=== PATIENT | female | born 1970 | race Caucasian/White ===

== ENCOUNTER → 2016-07-20 | Outpatient (CLI) | payer OTHER ==
[2013-11-02 22:19] VITALS: BP 160/84
[~2016-07-20] MED LIST: ASPI-482 PO; BUPIVACAINE MPF 0.25% 10 ML VIAL. ONE; OXYC5CAP3 PO; methylPREDNISolone ACETATE 40 MG/ML VIAL. ONE
--- NOTE | 2016-07-21 01:55 | PAIN ---
DATE OF SERVICE: 07/20/2016 PROGRESS NOTE FOR PAIN CLINIC DIAGNOSES: Right lower quadrant abdominal pain status post inguinal herniorrhaphy mesh. HISTORY OF PRESENT ILLNESS: This is a 45-year-old female, who returns for followup status post previous right ilioinguinal nerve blocks most recently seen on 11/05/2015. The patient did very well after the last injection and reports that she is still feeling relief with that this pain is beginning to return now over the past 1 week or so. The patient reports it is increasing in the right groin radiating to the right medial thigh, anterior thigh, worse with standing and walking, better with lying down or sitting. The patient reports it is shooting and sharp becomes unbearable at times with standing and walking, which is required ____. The patient reports her pain is 5-8 on a scale of 10. No new motor or sensory deficits or other complaints. PHYSICAL EXAMINATION: VITAL SIGNS: The patient's blood pressure 131/85, pulse 76, respirations 18, temperature 98.0 degrees Fahrenheit. Height is 5 feet 3 inches, weighs 191 pounds. GENERAL: The patient is awake, alert, oriented, appropriate, very pleasant demeanor. HEENT: Head shows normocephalic, atraumatic. Extraocular movements are intact and symmetrical. Oral cavity, mucous moist and pink. NECK: Shows anterior throat supple without palpable lymphadenopathy noted. Swallow reflex is symmetrical. CHEST: Shows normal on inspection. Breath sounds clear to auscultation bilaterally. HEART: Shows S1 and S2 clear. ABDOMEN: Soft, nontender, nondistended. BACK: The patient's right lower quadrant shows some moderate tenderness with palpation in the area just to the lateral aspect and inferior to the well-healed surgical scar from inguinal herniorrhaphy is without rash or discoloration, no skin changes are noted. LOWER EXTREMITIES: Showed deep tendon reflexes at 2+ in the patellar tendons. Motor exam is strong with dorsiflexion, extension, quadriceps and hamstring flexion and symmetrical with good hip flexors and extenders on the right and left lower extremities without deficits. Options were discussed with the patient and the patient's old chart was reviewed as her current medication regimen updated. Current review of systems updated today as well. We will proceed with a right repeat ilioinguinal nerve block. Risks were again discussed including, but not limited to bleeding, infection, possibility of epidural hematoma, subsequent neurological compromise, dural puncture, headaches, spinal cord and/or nerve damage, side effects of steroid medication and poor results regarding pain control. The patient understands and wishes to proceed. The patient will return to the clinic in approximately 2-4 weeks or as necessary, was counseled as to return appointment, activity level and side effects to be aware of. DIAGNOSIS: Right lower quadrant abdominal pain status post inguinal herniorrhaphy. PROCEDURE: Right ilioinguinal nerve block using local anesthetic under sterile prep and drape 25-gauge needle. MEDICATIONS INJECTED: Depo-Medrol 40 mg plus 5 mL of 0.25% bupivacaine after negative aspiration. CONDITION AT DISCHARGE: Stable. The patient tolerated procedure well, had no complications. SOFYA RUST MD DR: ALEJO/letha JOB#: [id number] / [id number]
== END ==
LOC: PNCL 14:10
PROVIDERS: ATTEND Anesthesiology
DX: R10.31 Right lower quadrant pain (principal)
CPT/HCPCS: 64425; J1030; J3490

== ENCOUNTER → 2016-10-25 | Outpatient (CLI) | payer OTHER ==
[2013-11-02 22:19] VITALS: BP 160/84
[~2016-10-25] MED LIST changes: -BUPIVACAINE MPF 0.25% 10 ML VIAL. ONE; +OXYC5CAP PO; -OXYC5CAP3 PO; -methylPREDNISolone ACETATE 40 MG/ML VIAL. ONE
--- NOTE | 2016-10-25 15:08 | RAD ---
EXAM: DIGITAL SCREEN BILAT W/CAD HISTORY: Routine Screening. COMPARISON: 03/11/2014 Standard mammographic views are obtained of the bilateral breasts. This study was interpreted with the benefit of Computerized Aided Detection (CAD). FINDINGS: The breast parenchyma is primarily fatty replaced. Breast parenchyma level density 1.. There is a possible small focal asymmetry seen within the left outer breast on the cc view and located 7-8 cm posterior to the nipple on the MLO view. No definite worrisome masses identified in the right breast. IMPRESSION: There is a possible focal asymmetry within the left breast that was not visualized on prior. Could be secondary to overlapping glandular tissue but recommend that the patient return for diagnostic mammogram of the left breast and if this finding persists an ultrasound will be needed. BI-RADS CATEGORY: 0 NEED ADD'L IMAGE/PRIOR MAMMO RECOMMENDED FOLLOW-UP: ADD ADDITIONAL IMAGING PQRS compliance statement: Patient information was entered into a reminder system with a target due date for the next mammogram. Mammography is a sensitive method for finding small breast cancers, but it does not detect them all and is not a substitute for careful clinical examination. A negative mammogram does not negate a clinically suspicious finding and should not result in delay in biopsying a clinically suspicious abnormality. "Our facility is accredited by the [employer] Mammography Program."
== END | disposition home or self-care (01) ==
LOC: MAMMO 13:54
PROVIDERS: ATTEND Nurse Practitioner Family
DX: Z12.31 Encounter for screening mammogram for malignant neoplasm of breast (principal)
CPT/HCPCS: G0202; 77067

== ENCOUNTER → 2016-11-02 | Outpatient (CLI) | payer OTHER ==
[2013-11-02 22:19] VITALS: BP 160/84
--- NOTE | 2016-11-02 14:04 | RAD ---
DATE: 11/02/2016 EXAM: BREAST LEFT, DIGITAL DIAGNOSTIC LT HISTORY: Call back from screening mammogram for possible abnormality in the left breast COMPARISON: Bilateral screening mammogram 10/25/2016 The breast parenchyma is also entirely fat density, category A. FINDINGS: CC and MLO 2-D spot compression views of the left breast demonstrated an asymmetry in the lateral left breast at approximately the 3:00 position. Dedicated left breast ultrasound from the 2 to 4:00 position demonstrates normal fibroglandular breast tissue and no suspicious mass or fluid collection. IMPRESSION: In the area of concern in the lateral left breast, there is normal fibroglandular tissue. BI-RADS CATEGORY: 1 NEGATIVE Recommendation: Return to screening mammogram in 12 months PQRS compliance statement: Patient information was entered into a reminder system with a target due date October 2017 for the next mammogram. Mammography is a sensitive method for finding small breast cancers, but it does not detect them all and is not a substitute for careful clinical examination. A negative mammogram does not negate a clinically suspicious finding and should not result in delay in biopsying a clinically suspicious abnormality. "Our facility is accredited by the [employer] Mammography Program."
--- NOTE | 2016-11-02 14:07 | RAD ---
Ultrasound chest 11/02/2016 Clinical indication: Patient's physician felt a lump between the xiphoid process and rib. Comparison: CT chest 03/14/2012 Findings: Multiple grayscale sonographic images in the area of palpable abnormality demonstrates normal-appearing rib with no suspicious soft tissue mass or fluid collection. Impression: In the area palpable abnormality medial anterior chest, right of midline, no suspicious mass or fluid collection and may represent normal costochondral junction.
== END | disposition home or self-care (01) ==
LOC: MAMMO 14:41
PROVIDERS: ATTEND Nurse Practitioner Family
DX: R92.8 Other abnormal and inconclusive findings on diagnostic imaging of breast (principal); D17.1 Benign lipomatous neoplasm of skin and subcutaneous tissue of trunk; N63 Unspecified lump in breast
CPT/HCPCS: 76604; 76641; G0206; 77065

== ENCOUNTER → 2016-12-26 | Outpatient (CLI) | payer OTHER ==
[2013-11-02 22:19] VITALS: BP 160/84
[2016-12-26 07:04] LABS: BASO # 0.1 x10^3/uL (0.0-0.2); BASO % 1 % (0-3); EOS % 2 % (0-3); HEMATOCRIT 43.3 % (36.0-47.0); HEMOGLOBIN 14.6 g/dL (12.0-15.5); LYMPH # 3.1 x10^3/uL (1.0-4.8); LYMPH % 35 % (24-48); MEAN CORPUSCULAR HEMOGLOBIN 32 pg (25-35); MEAN CORPUSCULAR HGB CONC 34 g/dL (31-37); MEAN CORPUSCULAR VOLUME 96 fL (79-100); MONO % 7 % (0-9); NEUT % 55 % (31-73); PLATELET COUNT 224 x10^3/uL (140-400); RED CELL DISTRIBUTION WIDTH 12.7 % (11.5-14.5)
[2016-12-26 07:10] LABS: ALBUMIN 3.7 g/dL (3.4-5.0); ALBUMIN/GLOBULIN RATIO 1.1 (1.0-1.7); C-REACTIVE PROTEIN 1.7 mg/L (0-3.3); CREATININE 0.7 mg/dL (0.6-1.0); GFR 89.3; POTASSIUM 3.8 mmol/L (3.5-5.1); TOTAL BILIRUBIN 0.3 mg/dL (0.2-1.0); TOTAL PROTEIN 7.1 g/dL (6.4-8.2)
== END | disposition home or self-care (01) ==
LOC: LAB 06:26
PROVIDERS: ATTEND Nurse Practitioner Family
DX: E55.9 Vitamin D deficiency, unspecified (principal); M25.50 Pain in unspecified joint; Z79.899 Other long term (current) drug therapy
CPT/HCPCS: 36415; 80053; 82306; 85025; 85651; 86140

== ENCOUNTER → 2017-05-16 | Outpatient (CLI) | payer OTHER ==
[2017-05-16 14:06] LABS: ADD MAN DIFF? NO
[2017-05-16 14:12] LABS: BASO # 0.1 x10^3/uL (0.0-0.2); BASO % 1 % (0-3); EOS # 0.3 x10^3/uL (0.0-0.7); EOS % 3 % (0-3); HEMATOCRIT 41.1 % (36.0-47.0); HEMOGLOBIN 13.7 g/dL (12.0-15.5); LYMPH # 3.8 x10^3/uL (1.0-4.8); LYMPH % 40 % (24-48); MEAN CORPUSCULAR HEMOGLOBIN 31 pg (25-35); MEAN CORPUSCULAR HGB CONC 33 g/dL (31-37); MEAN CORPUSCULAR VOLUME 94 fL (79-100); MONO # 0.5 x10^3/uL (0.0-1.1); MONO % 6 % (0-9); NEUT # 4.9 x10^3uL (1.8-7.7); NEUT % 51 % (31-73); PLATELET COUNT 235 x10^3/uL (140-400); RED BLOOD COUNT 4.39 x10^6/uL (3.50-5.40); RED CELL DISTRIBUTION WIDTH 12.9 % (11.5-14.5); WHITE BLOOD COUNT 9.6 x10^3/uL (4.0-11.0)
[2017-05-16 14:42] LABS: C-REACTIVE PROTEIN 1.5 mg/L (0-3.3)
[2017-05-16 14:54] LABS: FREE T4 0.72 ng/dL (0.76-1.46)
[2017-05-16 14:54] LABS: THYROID STIM HORMONE (TSH) 1.867 uIU/mL (0.358-3.74)
[2017-05-16 15:25] LABS: SEDIMENTATION RATE 14 (0-25)
[2017-05-17 00:15] LABS: RHEUMATOID FACTOR <10.0 IU/mL (0.0-13.9)
[2017-05-18 19:18] LABS: ANA INTERP Negative (.)
== END | disposition home or self-care (01) ==
LOC: LAB 13:47
DX: M25.50 Pain in unspecified joint (principal)
CPT/HCPCS: 36415; 84439; 84443; 85025; 85651; 86038; 86140; 86431

== ENCOUNTER → 2017-10-12 | Outpatient (CLI) | payer OTHER ==
[~2017-10-12] MED LIST changes: -ASPI-482 PO; +BUPIVACAINE MPF 0.25% 10 ML VIAL.; -OXYC5CAP PO; +methylPREDNISolone ACETATE 40 MG/ML VIAL.
== END | disposition home or self-care (01) ==
LOC: PNCL 13:53
DX: R10.31 Right lower quadrant pain (principal); Z98.890 Other specified postprocedural states
CPT/HCPCS: 64425; J1030; J3490

== ENCOUNTER → 2017-10-12 | Outpatient (CLI) | payer OTHER ==
[2017-10-12 14:15] LABS: THYROID STIM HORMONE (TSH) 1.456 uIU/mL (0.358-3.74)
== END | disposition home or self-care (01) ==
LOC: LAB 12:25
DX: R79.9 Abnormal finding of blood chemistry, unspecified (principal)
CPT/HCPCS: 36415; 64425; 84439; 84443

== ENCOUNTER → 2017-10-24 | Outpatient (CLI) | payer OTHER | END | disposition home or self-care (01) | LOC: MAMMO 13:53 | DX: Z12.31 Encounter for screening mammogram for malignant neoplasm of breast (principal) | CPT/HCPCS: 77063; 77067 ==

== ENCOUNTER → 2018-02-07 | Outpatient (CLI) | payer OTHER ==
[2013-11-02 22:19] VITALS: BP 160/84
[~2018-02-07] MED LIST changes: +ASPI-482 PO; -BUPIVACAINE MPF 0.25% 10 ML VIAL.; +OXYC5CAP PO; -methylPREDNISolone ACETATE 40 MG/ML VIAL.
[2018-02-07 08:14] LABS: ALBUMIN 3.7 g/dL (3.4-5.0); CREATININE 0.6 mg/dL (0.6-1.0); GFR 106.3; POTASSIUM 3.9 mmol/L (3.5-5.1); TOTAL BILIRUBIN 0.2 mg/dL (0.2-1.0); TOTAL PROTEIN 7.3 g/dL (6.4-8.2)
[2018-02-07 08:27] LABS: CHOLESTEROL/HDL RATIO 2.8
== END | disposition home or self-care (01) ==
LOC: LAB 06:58
PROVIDERS: ATTEND Nurse Practitioner Gerontology
DX: Z13.220 Encounter for screening for lipoid disorders (principal); F50.81 Binge eating disorder
CPT/HCPCS: 36415; 80053; 80061

== ENCOUNTER → 2018-07-09 | Outpatient (CLI) | payer OTHER ==
[2013-11-02 22:19] VITALS: BP 160/84
[2018-07-09 09:23] LABS: ALBUMIN 3.7 g/dL (3.4-5.0); ALBUMIN/GLOBULIN RATIO 1.1 (1.0-1.7); CREATININE 0.7 mg/dL (0.6-1.0); GFR 88.9; POTASSIUM 3.5 mmol/L (3.5-5.1); TOTAL BILIRUBIN 0.2 mg/dL (0.2-1.0); TOTAL PROTEIN 7.2 g/dL (6.4-8.2)
== END | disposition home or self-care (01) ==
LOC: LAB 06:27
PROVIDERS: ATTEND Nurse Practitioner Gerontology
DX: K76.9 Liver disease, unspecified (principal)
CPT/HCPCS: 36415; 80053

== ENCOUNTER → 2018-10-24 | Outpatient (CLI) | payer OTHER ==
[2013-11-02 22:19] VITALS: BP 160/84
--- NOTE | 2018-10-24 14:27 | RAD ---
DATE: 10/24/2018. EXAM: MAMMO LAURENCE SCREENING BILATERAL HISTORY: Routine screening. COMPARISON: Previous mammogram from 2018 and 2013. This study was interpreted with the benefit of Computerized Aided Detection (CAD). FINDINGS: Breast Density: SCATTERED The breast parenchyma shows scattered fibroglandular densities. Breast parenchyma level B. The skin and nipples are within normal limits. No suspicious calcifications, spiculated mass or area of architectural distortion. Stable left outer breast mass dating back to 2013 and benign given interval stability. IMPRESSION: No mammographic evidence of malignancy. BI-RADS CATEGORY: 2 BENIGN FINDING(S) RECOMMENDED FOLLOW-UP: 12M 12 MONTH FOLLOW-UP PQRS compliance statement: Patient information was entered into a reminder system with a target due date for the next mammogram. Mammography is a sensitive method for finding small breast cancers, but it does not detect them all and is not a substitute for careful clinical examination. A negative mammogram does not negate a clinically suspicious finding and should not result in delay in biopsying a clinically suspicious abnormality. "Our facility is accredited by the [employer] Mammography Program."
== END | disposition home or self-care (01) ==
LOC: MAMMO 12:16
PROVIDERS: ATTEND Nurse Practitioner Gerontology
DX: Z12.31 Encounter for screening mammogram for malignant neoplasm of breast (principal); N63.20 Unspecified lump in the left breast, unspecified quadrant
CPT/HCPCS: 77063; 77067

== ENCOUNTER → 2018-11-15 | Outpatient (CLI) | payer OTHER ==
[2013-11-02 22:19] VITALS: BP 160/84
[2018-11-15 07:28] LABS: ALBUMIN 3.9 g/dL (3.4-5.0); ALBUMIN/GLOBULIN RATIO 1.1 (1.0-1.7); CALCIUM 8.9 mg/dL (8.5-10.1); CREATININE 0.7 mg/dL (0.6-1.0); GFR 88.9; POTASSIUM 3.7 mmol/L (3.5-5.1); TOTAL BILIRUBIN 0.3 mg/dL (0.2-1.0); TOTAL PROTEIN 7.4 g/dL (6.4-8.2)
== END | disposition home or self-care (01) ==
LOC: LAB 06:25
PROVIDERS: ATTEND Nurse Practitioner Gerontology
DX: Z51.81 Encounter for therapeutic drug level monitoring (principal); Z79.899 Other long term (current) drug therapy
CPT/HCPCS: 36415; 80053

== ENCOUNTER → 2018-11-16 | Outpatient (CLI) | payer OTHER ==
[2013-11-02 22:19] VITALS: BP 160/84
[~2018-11-16] MED LIST changes: +BUPIVACAINE MPF 0.25% 10 ML VIAL. ONE; +methylPREDNISolone ACETATE 40 MG/ML VIAL. ONE
--- NOTE | 2018-11-16 10:29 | PAIN ---
DATE OF SERVICE: 11/16/2018 PROGRESS NOTE FOR PAIN CLINIC DIAGNOSIS: Right lower quadrant abdominal pain, status post herniorrhaphy with mesh. HISTORY OF PRESENT ILLNESS: The patient is a 47-year-old female who returns for followup status post right ilioinguinal nerve blocks, most recently 10/2017. The patient did very well, reports about 80% improvement until last Monday. She was involved in moving some heavy items at work and aggravated the pain in the right groin radiating to the right medial thigh. The patient reports it is aching, sharp, dull, shooting, stabbing, now radiating, becoming more severe with weightbearing, walking, standing, changing positions, especially standing from a seated position. The patient reports it is better at night, does not awaken her from sleep. This is 10 on a scale of 10 at its worst, 10 on average over the last week and a 5 at its least and is a 10 today. The patient reports no new motor or sensory deficits, no new bowel or bladder incontinence or other complaints. PHYSICAL EXAMINATION: VITAL SIGNS: The patient's blood pressure 159/100, pulse 96, respirations 18, temperature 97.8 degrees Fahrenheit, height is 5 feet 2 inches, weight is 179 pounds. GENERAL: The patient is awake, alert, oriented, appropriate, very pleasant demeanor. HEENT: Shows normocephalic, atraumatic. Extraocular movements are intact and symmetrical. Oral cavity: Mucous membranes moist and pink. Dentition is intact. NECK: Shows anterior throat supple without palpable lymphadenopathy noted. Swallow reflex symmetrical. CHEST: Shows normal on inspection. Breath sounds clear to auscultation bilaterally. HEART: Shows S1, S2 clear. No murmurs auscultated. ABDOMEN: Soft, nontender, nondistended. No palpable organomegaly is noted. No rebound or guarding demonstrated. BACK: Shows spine grossly in the midline. Normal appearing thoracic kyphosis and lumbar lordotic curvature. EXTREMITIES: The patient's lower extremities show deep tendon reflexes 2+ in the patellar, 1+ tendo-calcaneus tendons. Motor exam is strong with 5/5 dorsiflexion, extension and equal. The patient's right groin shows some scarring in the right inguinal region with significant tenderness just inferior and medial to the anterior-superior iliac spine and over the area of scar more medially with some minor radiation into the medial groin, medial thigh with palpation. Left side is nontender. Options were discussed with the patient. The patient's old chart was reviewed as her current medication regimen updated. Current review of systems updated today as well. We will proceed with a right ilioinguinal nerve block today. Risks were again discussed including, but not limited to bleeding, infection, possibility of intravascular injection sequelae, spread of local anesthetic and numbness, side effects of steroid medication and poor results regarding pain control. The patient understands and wished to proceed. The patient will return to clinic in approximately 2 weeks for followup. She was counseled on return appointment, activity level and side effects to be aware of. DIAGNOSIS: Right lower quadrant abdominal pain, status post herniorrhaphy with mesh. PROCEDURE: Right ilioinguinal nerve block under sterile prep and drape using a 0.25% bupivacaine total of 5 mL after negative aspiration and 40 mg total Depo-Medrol. CONDITION AT DISCHARGE: Stable. The patient tolerated the procedure well, had no complications. SOFYA RUST MD DR: ALEJO/letha JOB#: [id number] / [id number]
== END ==
LOC: PNCL 07:33
PROVIDERS: ATTEND Anesthesiology
DX: R10.31 Right lower quadrant pain (principal); Z98.890 Other specified postprocedural states
CPT/HCPCS: 64425; J1030; J3490

== ENCOUNTER → 2019-08-13 | Outpatient (CLI) | payer OTHER ==
[2013-11-02 22:19] VITALS: BP 160/84
[~2019-08-13] MED LIST changes: +ALPR0.5T PO; -BUPIVACAINE MPF 0.25% 10 ML VIAL. ONE; -methylPREDNISolone ACETATE 40 MG/ML VIAL. ONE
[2019-08-13 12:01] LABS: BASO % 1 % (0-3); EOS # 0.2 x10^3/uL (0.0-0.7); EOS % 2 % (0-3); HEMATOCRIT 41.3 % (36.0-47.0); HEMOGLOBIN 14.2 g/dL (12.0-15.5); LYMPH # 2.8 x10^3/uL (1.0-4.8); LYMPH % 35 % (24-48); MEAN CORPUSCULAR HEMOGLOBIN 33 pg (25-35); MEAN CORPUSCULAR HGB CONC 34 g/dL (31-37); MEAN CORPUSCULAR VOLUME 95 fL (79-100); MONO # 0.4 x10^3/uL (0.0-1.1); MONO % 5 % (0-9); NEUT # 4.5 x10^3/uL (1.8-7.7); NEUT % 57 % (31-73); PLATELET COUNT 241 x10^3/uL (140-400); RED BLOOD COUNT 4.36 x10^6/uL (3.50-5.40)
[2019-08-13 12:22] LABS: ALBUMIN 3.8 g/dL (3.4-5.0); ALBUMIN/GLOBULIN RATIO 1.2 (1.0-1.7); C-REACTIVE PROTEIN 2.5 mg/L (0-3.3); CALCIUM 8.7 mg/dL (8.5-10.1); CREATININE 0.7 mg/dL (0.6-1.0); GFR 88.6; POTASSIUM 3.7 mmol/L (3.5-5.1); TOTAL BILIRUBIN 0.2 mg/dL (0.2-1.0)
[2019-08-13 20:08] LABS: RHEUMATOID FACTOR 10.4 IU/mL (0.0-13.9)
[2019-08-14 18:09] LABS: ANA INTERP Negative (.)
== END | disposition home or self-care (01) ==
LOC: LAB 11:13
PROVIDERS: ATTEND Nurse Practitioner Gerontology
DX: M79.642 Pain in left hand (principal)
CPT/HCPCS: 36415; 80053; 85025; 85651; 86038; 86140; 86431

== ENCOUNTER → 2019-08-15 | Outpatient (CLI) | payer OTHER ==
[2013-11-02 22:19] VITALS: BP 160/84
[~2019-08-15] MED LIST changes: +BUPIVACAINE MPF 0.25% 10 ML VIAL. ONE; +methylPREDNISolone ACETATE 40 MG/ML VIAL. ONE; +methylPREDNISolone ACETATE 80 MG/ML VIAL. ONE
--- NOTE | 2019-08-15 13:25 | PAIN ---
DATE OF SERVICE: 08/15/2019 PROGRESS NOTE FOR PAIN CLINIC DIAGNOSIS: Right lower quadrant abdominal pain, status post herniorrhaphy with mesh. HISTORY OF PRESENT ILLNESS: The patient is a 48-year-old female who returns for followup status post right ilioinguinal nerve block, most recently on 11/16/2018. The patient did very well with about 80% improvement eventually, but initially about 100% improvement. The patient reports it is beginning to return now over the past 6 weeks or so in the right groin and some into the anterior medial thigh, also feels some pain in the posterior hip, but mainly in the right groin and thigh. The patient reports it is aching, sharp, shooting, stabbing, severe, radiating at times into the medial thigh and lower abdomen. It can be severe and unbearable, worse with activity, walking, standing, especially standing for prolonged periods, changing positions, standing from a seated position. Rates it as a 9 on a scale of 10 at its worst over the past week, 8 on average and 8 at its least and is an 8 today. The patient reports no new motor or sensory deficits, no new bowel or bladder incontinence or other complaints. PHYSICAL EXAMINATION: VITAL SIGNS: The patient's blood pressure 138/81, pulse 94, respirations 18, temperature 98.1 degrees Fahrenheit, height is 5 feet 2 inches, weighs 180 pounds. GENERAL: The patient is awake, alert, oriented, appropriate, very pleasant demeanor. HEENT: Exam shows normocephalic, atraumatic. Extraocular movements are intact and symmetrical. Oral cavity shows mucous membranes moist and pink. Dentition is intact. NECK: Shows anterior throat supple without palpable lymphadenopathy noted. Swallow reflex symmetrical. CHEST: Shows normal on inspection. Breath sounds are clear bilaterally. HEART: Shows S1, S2 clear. No murmurs auscultated. ABDOMEN: Soft, nontender, nondistended. No palpable organomegaly is noted. There is no rebound or guarding demonstrated. BACK: Shows spine grossly in the midline. Normal appearing thoracic kyphosis, some minor flattening of lumbar lordotic curvature. The patient's right inguinal region shows previously well-healed surgical scarring. There is some moderate tenderness over the anterior superior iliac spine with palpation and also slightly medial and inferior to this without specific radiation. The patient shows no trigger points, no masses. No organomegaly is noted. EXTREMITIES: The patient's lower extremities show deep tendon reflexes 2+ in the patellar, 1+ tendo-calcaneus tendons. Motor exam is strong with 5/5 dorsiflexion, extension and equal. Peripheral pulses are 1+ posterior tibia. No peripheral edema is noted. Options were discussed with the patient. The patient's old chart was reviewed as her current medication regimen updated. Current review of systems updated today as well. We will proceed with a right ilioinguinal nerve block today with risks discussed including, but not limited to bleeding, infection, possibility of extravasation of local anesthetic and numbness, side effects of steroid medication as well as poor results regarding pain control. The patient understands and wished to proceed. The patient will return to clinic in approximately 2 weeks for followup. She was counseled on return appointment, activity level and side effects to be aware of. DIAGNOSIS: Right lower quadrant abdominal pain, status post herniorrhaphy with mesh. PROCEDURE: Right ilioinguinal nerve block under sterile prep and drape using local anesthetic. MEDICATION INJECTED: A total of 5 mL of 0.25% bupivacaine and 80 mg Depo-Medrol after negative aspiration at the injection site. CONDITION AT DISCHARGE: Stable. The patient tolerated the procedure well, had no complications. SOFYA RUST MD DR: ALEJO/letha JOB#: [id number] / [id number]
== END | disposition home or self-care (01) ==
LOC: PNCL 12:31
PROVIDERS: ATTEND Anesthesiology
DX: R10.31 Right lower quadrant pain (principal); Z98.890 Other specified postprocedural states
CPT/HCPCS: 64425; J1040; J3490; J1030

== ENCOUNTER → 2020-02-10 | Outpatient (CLI) | payer OTHER ==
[2013-11-02 22:19] VITALS: BP 160/84
--- NOTE | 2020-02-10 15:19 | PDOC ---
Progress Note - Pain Clinic Date of Service: DOS: DATE: 02/10/20 TIME: 15:14 Diagnosis: Dx: Right lower quadrant abdominal pain status post herniorrhaphy with mesh History or Present Illness: HPI: 49-year-old female returns follow-up status post right ilioinguinal nerve block last seen August 15, 2019. Patient reports he did very well with near 100% improvement until about 2 weeks ago patient reports pain began to return in the right inguinal region also radiated anterior and medial thigh on the right side worse with position changes sitting standing walking better with laying down however does not generally awaken her from sleep at night. Patient ports the pain is a 10 on scale 10 is worse over the past week 8 on average 7 its least as a 7 today patient works aching sharp shooting burning in sensation as well in the right ilioinguinal distribution. Patient reports no new motor or sensory deficits no new bowel or bladder incontinence or other complaints. Physical Exam: VS: Blood pressure is 134/84 pulse 73 respirations are 18 temperature 90.5 F height 5 feet 2 inches weight is 193 pounds PE: PHYSICAL EXAMINATION: GENERAL: The patient is awake, alert, oriented, appropriate, very pleasant demeanor HEENT: Shows normocephalic, atraumatic. Extraocular movements are intact and symmetrical. Oral cavity: Mucous membranes moist and pink. NECK: Shows anterior throat supple without palpable lymphadenopathy noted. Swallow reflex symmetrical. CHEST: Shows normal on inspection. Breath sounds are clear bilaterally, no rales rhonchi wheezes. HEART: Shows S1, S2 clear. No murmurs auscultated. ABDOMEN: Soft, nontender, nondistended, obese. No palpable organomegaly is noted. No rebound or guarding demonstrated. Patient's right lower quadrant shows some significant pain as well as well-healed surgical scar in the ilioinguinal region. With palpation shows some moderate significant pain in the medial inferior aspect inferior to the anterior superior iliac spine, but without significant radiation. BACK: Shows spine grossly in the midline. Normal-appearing cervical lordotic curvature. There is slightly increased thoracic kyphosis, some minor flattening of the lumbar lordotic curvature. Lumbar paraspinous muscles show symmetrical on inspection, on palpation shows some moderate tenderness diffusely throughout the upper, middle and lower distribution of the paraspinous muscles without specific trigger points, without radiation of pain. EXTREMITIES: Lower extremities show deep tendon reflexes 2+ in the patellar and tendo calcaneus tendons. Motor exam is 5 on a scale of 5 with right dorsiflexion, extension, quadriceps and hamstring flexion and 5/5 on the left. Peripheral pulses are [] posterior tibial. No peripheral edema is noted bilaterally. Lower extremities are warm and dry to touch, equal in color and appearance. SKIN: Shows warm and dry, good turgor. No edema. No sores, rashes or bruising throughout. Procedure: Procedure: Options were discussed with the patient. Patient's old chart was reviewed as her current medication regimen updated current review of systems updated today as well. We will proceed with right ilioinguinal nerve block. Risks were discussed including but not limited to bleeding infection possibility of intravascular injection sequelae spread local anesthetic numbness side effects of steroid medication and portal scarring pain control. Patient understands wished to proceed, patient will return to the clinic in approximately 4 weeks for follow-up was counseled as to return appointment activity level and side effects to be aware of. Medication Injected: Med Injected: Sterile prep and drape patient's right ilioinguinal region was notified and region 2 cm medial and 2 cm inferior to the anterior superior iliac spine was then anesthetized with 1% lidocaine this time 25-gauge needle was used to inject into the ilioinguinal nerve in a field block fashion using 5 cc of 0.25% bupivacaine and total of 80 mg Depo-Medrol after negative aspiration. Patient tolerated the procedure well and had no complications. Condition at Discharge: Condition at Discharge: Condition at discharge is stable, patient tolerated procedure well and had no complications. SOFYA RUST MD Feb 10, 2020 15:19
== END | disposition home or self-care (01) ==
LOC: PNCL 14:30
PROVIDERS: ATTEND Anesthesiology
DX: R10.31 Right lower quadrant pain (principal); Z48.815 Encounter for surgical aftercare following surgery on the digestive system; Z87.891 Personal history of nicotine dependence; Z79.82 Long term (current) use of aspirin; Z79.899 Other long term (current) drug therapy; Z98.890 Other specified postprocedural states; Z72.89 Other problems related to lifestyle
CPT/HCPCS: 64425; J1030; J1040; J3490

== ENCOUNTER → 2020-07-03 | Outpatient (CLI) | payer OTHER ==
[2013-11-02 22:19] VITALS: BP 160/84
[~2020-07-03] MED LIST changes: -BUPIVACAINE MPF 0.25% 10 ML VIAL. ONE; -methylPREDNISolone ACETATE 40 MG/ML VIAL. ONE; -methylPREDNISolone ACETATE 80 MG/ML VIAL. ONE
--- NOTE | 2020-07-03 17:14 | RAD ---
XR SHOULDER 2+ VIEWS DATE: 07/03/2020 12:31 PM INDICATION: Reason: POLYARTHRITIS. / Spl. Instructions: / History: COMPARISON: None. FINDINGS: Bones: There is no evidence of acute fracture or dislocation. Joints: Mild degenerative changes of the acromioclavicular joint. Glenohumeral joint is congruent. T he acromiohumeral distance is not narrowed. Miscellaneous: No abnormal soft tissue calcifications in the shoulder. Calcified pulmonary granuloma. IMPRESSION: Mild AC joint osteoarthritis. Electronically signed by: Alejandro Bob MD (07/03/2020 5:11 PM) [id number]
--- NOTE | 2020-07-03 17:14 | RAD ---
XR KNEE 3 VIEWS DATE: 07/03/2020 12:31 PM INDICATION: Reason: POLYARTHRITIS. / Spl. Instructions: / History: COMPARISON: None. FINDINGS: Bones: There is no evidence of acute fracture or dislocation. Joints: Mild medial compartment joint space narrowing. There is no joint effusion. Miscellaneous: None. IMPRESSION: Mild degenerative narrowing of the medial compartment of the knee. Electronically signed by: Alejandro Bob MD (07/03/2020 5:12 PM) [id number]
--- NOTE | 2020-07-03 17:16 | RAD ---
XR HIP (WITH OR WITHOUT PELVIS) 1 VIEW DATE: 07/03/2020 12:31 PM INDICATION: Reason: BILAT HIP PAIN / Spl. Instructions: / History: COMPARISON: None. FINDINGS: Bones: There is no evidence of acute fracture or dislocation. Joints: Mild joint space narrowing of the hips. Moderate degenerative changes of the symphysis pubis. And SI joints are maintained. Miscellaneous: Pelvic phleboliths. IMPRESSION: Mild degenerative changes of the hips. Moderate degenerative changes of the symphysis pubis. Electronically signed by: Alejandro Bob MD (07/03/2020 5:13 PM) [id number]
== END ==
LOC: RAD 08:20
PROVIDERS: ATTEND Family Medicine
DX: M16.0 Bilateral primary osteoarthritis of hip (principal); M17.0 Bilateral primary osteoarthritis of knee; M19.012 Primary osteoarthritis, left shoulder; M19.011 Primary osteoarthritis, right shoulder
CPT/HCPCS: 73521; 73030-50; 73562-50

== ENCOUNTER → 2020-10-15 | Outpatient (CLI) | payer OTHER ==
[2013-11-02 22:19] VITALS: BP 160/84
[~2020-10-15] MED LIST changes: +CONTRAST GIVEN. MC PRN; +IOHEXOL 300 MG/ML 100ML VIAL. IV ONE
[2020-10-15 08:31] LABS: BASO % 1 % (0-3); EOS # 0.3 x10^3/uL (0.0-0.7); EOS % 3 % (0-3); HEMATOCRIT 43.2 % (36.0-47.0); HEMOGLOBIN 14.6 g/dL (12.0-15.5); LYMPH # 3.4 x10^3/uL (1.0-4.8); LYMPH % 39 % (24-48); MEAN CORPUSCULAR HEMOGLOBIN 32 pg (25-35); MEAN CORPUSCULAR HGB CONC 34 g/dL (31-37); MEAN CORPUSCULAR VOLUME 94 fL (79-100); MONO # 0.7 x10^3/uL (0.0-1.1); MONO % 7 % (0-9); NEUT # 4.4 x10^3/uL (1.8-7.7); NEUT % 50 % (31-73); PLATELET COUNT 225 x10^3/uL (140-400); RED BLOOD COUNT 4.62 x10^6/uL (3.50-5.40); RED CELL DISTRIBUTION WIDTH 13.5 % (11.5-14.5); WHITE BLOOD COUNT 8.8 x10^3/uL (4.0-11.0)
[2020-10-15 08:55] LABS: ALBUMIN/GLOBULIN RATIO 1.4 (1.0-1.7); CALCIUM 9.1 mg/dL (8.5-10.1); CREATININE 0.6 mg/dL (0.6-1.0); GFR 105.4; POTASSIUM 4.2 mmol/L (3.5-5.1); TOTAL BILIRUBIN 0.2 mg/dL (0.2-1.0); TOTAL PROTEIN 6.8 g/dL (6.4-8.2)
--- NOTE | 2020-10-15 10:53 | RAD ---
PQRS Compliance Statement: One or more of the following individualized dose reduction techniques were utilized for this examinat ion: 1. Automated exposure control 2. Adjustment of the mA and/or kV according to patient size 3. Use of iterative reconstruction technique CT NECK SOFT TISSUE WITH IV CONTRAST 10/15/2020 8:23 AM Indication: Jaw pain and swelling along the left side COMPARISON: None available. TECHNIQUE: Multiple axial CT images of the chest were obtained after the intravenous administration o f nonionic contrast. Coronal and sagittal reformats are provided. FINDINGS: The visualized brain parenchyma appears intact. The skull base is normal. The visualized paranasal si nuses and orbital contents are normal. The sella turcica and cavernous sinus regions appear intact. T he mastoid air cells are normal. The fossa of Rosenmuller is normal. The parotid space contents and pari mutuel clerk space contents appear i ntact. The parapharyngeal spaces are normal. The submandibular and sublingual space contents appear intact. The epiglottis, aryepiglottic folds, and piriform sinuses are normal. The vallecula appears normal. The larynx and trachea are normal. The thyroid lobes appear intact. The carotid space contents are normal. There is no deep cervical chain adenopathy observed. The jugul odigastric regions appear intact. Nonenlarged bilateral level 2 cervical lymph node measuring 8 mm by short axis. Minimal anterolisthesis of C5 on C6. The supraclavicular regions appear intact. The visualized medias tinum is normal. Calcified granuloma identified in the left upper lobe measuring 6.5 mm. Impression: No suspicious abnormality is identified. Electronically signed by: Farrah Mari MD (10/15/2020 10:51 AM) [id number]
== END ==
LOC: CT 08:05
PROVIDERS: ATTEND Family Medicine
DX: R22.0 Localized swelling, mass and lump, head (principal); R68.84 Jaw pain; M43.12 Spondylolisthesis, cervical region; J84.10 Pulmonary fibrosis, unspecified
CPT/HCPCS: 36415; 70491; 80053; 85025; 85651; Q9967

== ENCOUNTER → 2021-02-08 | Outpatient (CLI) | payer OTHER ==
[2013-11-02 22:19] VITALS: BP 160/84
[~2021-02-08] MED LIST changes: +BUPIVACAINE MPF 0.25% 10 ML VIAL. ONE; -CONTRAST GIVEN. MC PRN; -IOHEXOL 300 MG/ML 100ML VIAL. IV ONE; +methylPREDNISolone ACETATE 40 MG/ML VIAL. ONE
--- NOTE | 2021-02-08 15:15 | PDOC ---
Progress Note - Pain Clinic Date of Service: DOS: DATE: 02/08/21 TIME: 15:11 Diagnosis: Dx: Right lower quadrant abdominal pain status post herniorrhaphy with mesh and chronic postoperative pain History or Present Illness: HPI: 50-year-old female returns for follow-up status post right ilioinguinal nerve block last seen February 2020 patient did very well about 75% improvement for about 10 months patient reports pain returning over the past month or 2 in the right groin and the right lower quadrant of the abdomen worse with lifting things moving think she recently helped family member moved some furniture over the past week or so and is exacerbated the pain significantly patient reports her pain is a 10 on scale 10 is worse over the past week 8 on average 5 its least is an 8 today patient Is burning and cramping aching sharp tight and shooting in the right lower quadrant into the right groin radiating to the medial groin and some to the anterior and upper thigh patient reports it can be severe with walking standing weightbearing especially changing positions getting up from a seated position or sitting for prolonged periods greater than about 30 minutes. Patient reports no new bowel or bladder incontinence. Physical Exam: VS: Blood pressure is 125/82 pulse 90 respirations 16 temperature 98.1 F weight is 197 pounds PE: PHYSICAL EXAMINATION: GENERAL: The patient is awake, alert, oriented, appropriate, very pleasant in demeanor HEENT: Shows normocephalic, atraumatic. Extraocular movements are intact and symmetrical. Oral cavity: Mucous membranes moist and pink. Dentition is intact. NECK: Shows anterior throat supple without palpable lymphadenopathy noted. Swallow reflex symmetrical. CHEST: Shows normal on inspection. Breath sounds are clear bilaterally, distant no rales or rhonchi. HEART: Shows S1, S2 clear. No murmurs auscultated. ABDOMEN: Soft, nontender, nondistended, obese. No palpable organomegaly is noted. No rebound or guarding demonstrated. Patient has significant tenderness in the inferior aspect the right lower quadrant and just medial and inferior to the anterior superior iliac spine which is very tender with palpation as well as the area medial and inferior to it without specific radiation on palpation h owever. BACK: Shows spine grossly in the midline. Normal-appearing cervical lordotic curvature. There is slightly increased thoracic kyphosis, some minor flattening of the lumbar lordotic curvature. EXTREMITIES: Lower extremities show deep tendon reflexes 2+ in the patellar and tendo calcaneus tendons. Motor exam is 5 on a scale of 5 with right dorsiflexion, extension, quadriceps and hamstring flexion and 5/5 on the left. Peripheral pulses are 1 posterior tibial. No peripheral edema is noted bilaterally. Lower extremities are warm and dry to touch, equal in color and appearance. SKIN: Shows warm and dry, good turgor. No edema. No sores, rashes or bruising throughout. Procedure: Procedure: Options were discussed with the patient. Patient chart was reviewed as her current medication regimen updated current review of systems updated today as well. We will proceed with a right ilioinguinal nerve block today. Risk were discussed including but not limited to bleeding infection possibility of intravascular injection sequelae spread local anesthetic numbness side effects of steroid medication portals regarding pain control. Patient understands wished to proceed. Patient will return to the clinic in approximately 4 weeks for follow-up, was counseled as return appointment, activity level, and side effects beware of. Medication Injected: Med Injected: Patient supine position under sterile prep and drape patient's right groin was prepped and draped in usual fashion. Using a 25-gauge needle right ilioinguinal nerve block was carried out approximately 2 cm medial and 2 cm inferior to the anterior superior iliac spine with palpable "pop" through the fascial layers with infiltration block carried out using 5 cc 0.25% ropivacaine and 40 mg total Depo-Medrol, after negative aspiration. Patient tolerated the procedure well and had no complications. Condition at Discharge: Condition at Discharge: Condition at discharge stable, pain tolerated procedure well and had no complications. SOFYA RUST MD Feb 08, 2021 15:15
--- NOTE | 2021-02-08 15:16 | PDOC4 ---
Procedure Note: ICD 10 Code: ICD 10 Code: R1 0.31 G8 9.18 Procedure Note: Patient was consented for right ilioinguinal nerve block. Risk were discussed including but not limited to bleeding infection possibility of intravascular injection sequelae spread local anesthetic numbness side effects of steroid medication and poor results regarding pain control. Patient understands wished to proceed. Patient supine position under sterile prep and drape patient's right groin was prepped and draped in usual fashion. Using a 25-gauge needle right ilioinguinal nerve block was carried out approximately 2 cm medial and 2 cm inferior to the anterior superior iliac spine with palpable "pop" through the fascial layers with infiltration block carried out using 5 cc 0.25% ropivacaine and 40 mg total Depo-Medrol, after negative aspiration. Patient tolerated the procedure well and had no complications. SOFYA RUST MD Feb 08, 2021 15:16
== END | disposition home or self-care (01) ==
LOC: PNCL 14:34
PROVIDERS: ATTEND Anesthesiology
DX: G89.18 Other acute postprocedural pain (principal); R10.31 Right lower quadrant pain; Z87.891 Personal history of nicotine dependence; Z79.899 Other long term (current) drug therapy; Z72.89 Other problems related to lifestyle
CPT/HCPCS: 64425; J1030; J3490

== ENCOUNTER → 2021-02-11 | Outpatient (CLI) | payer OTHER ==
[2013-11-02 22:19] VITALS: BP 160/84
[~2021-02-11] MED LIST changes: -BUPIVACAINE MPF 0.25% 10 ML VIAL. ONE; -methylPREDNISolone ACETATE 40 MG/ML VIAL. ONE
--- NOTE | 2021-02-12 11:49 | RAD ---
INDICATION : Routine Screening. COMPARISON: [facility] including October 2018 TECHNIQUE: Standard mammogram screening views of the bilateral breasts were obtained with 3D tomosynt hesis. CAD was utilized. FINDINGS: The breasts are fatty density. No definite new suspicious mass. IMPRESSION: BI-RADS Category 2: Benign findings. Recommend repeat screening mammogram in one year. The patient was placed into the recall system with a suggested recall date for follow up imaging. Mammography is the most sensitive method for finding small breast cancers, but it does not detect the m all and is not a substitute for careful clinical examination. A negative mammogram does not negate a clinically suspicious finding and should not result in delay in biopsying a clinically suspicious abnormality. Electronically signed by: Tim Olivo MD (02/12/2021 11:47 AM) [id number]
== END ==
LOC: MAMMO 10:00
PROVIDERS: ATTEND Family Medicine
DX: Z12.31 Encounter for screening mammogram for malignant neoplasm of breast (principal)
CPT/HCPCS: 77063; 77067

== ENCOUNTER → 2021-08-02 | Outpatient (CLI) | payer OTHER ==
[2013-11-02 22:19] VITALS: BP 160/84
[~2021-08-02] MED LIST changes: +BUPIVACAINE MPF 0.25% 10 ML VIAL. ONE; +DEXAMETHASONE PRES.FREE 10 MG/ML VIAL. ONE
--- NOTE | 2021-08-02 15:57 | PDOC ---
Progress Note - Pain Clinic Date of Service: DOS: DATE: 08/02/21 TIME: 15:50 Diagnosis: Dx: Right lower quadrant abdominal pain status post herniorrhaphy with mesh Bilateral foot pain History or Present Illness: HPI: 50-year-old female returns for follow-up status post right ilioinguinal nerve block most recently February 08, 2021. Patient reports 100% improvement for about 5 months pain returning now over the past few days in the right lower quadrant radiating into the anterior groin and occasionally into the lateral hip but mostly in the anterior aspect in the lower quadrant of the right side of the abdomen patient reports is a 9 on scale 10 is worse over the past week 8 on average 5 to [place] is a 5 today patient 40s worse with walking standing changing positions sitting for prolonged periods with her hip flexed patient reports aching sharp tight shooting burning stabbing also radiating into the groin patient reports also secondary complaint of bilateral foot pain left greater than right but present bilaterally with some nodules she is noticed on the soles of both of her feet. Patient reports she discussed this with her primary care physician who dismissed it and that she is concerned that she may have some abnormality in the feet themselves as she has had foot problems in the past. Patient has not seen a occupational therapist rehab manager or referral specialist at this point. We discussed the issue and we will order bilateral foot x-rays and make referral for podiatry evaluation. Physical Exam: VS: Blood pressure is 139/89 pulse 79 respirations are 18 temperature 98.1 F weight is 198 pounds. PE: PHYSICAL EXAMINATION: GENERAL: The patient is awake, alert, oriented, appropriate, very pleasant in demeanor HEENT: Shows normocephalic, atraumatic. Extraocular movements are intact and symmetrical. Oral cavity: Mucous membranes moist and pink. Dentition is intact. NECK: Shows anterior throat supple without palpable lymphadenopathy noted. Swallow reflex symmetrical. CHEST: Shows normal on inspection. Breath sounds are clear bilaterally. HEART: Shows S1, S2 clear. No murmurs auscultated. ABDOMEN: Soft, nontender, nondistended. No palpable organomegaly is noted. Significant tenderness in the right lower quadrant just medial and inferior to the anterior superior iliac spine but without specific radiation well-healed hernia scar is again noted. Patient shows no rebound no masses palpable in this region as well. EXTREMITIES: Lower extremities show deep tendon reflexes 2+ in the patellar and tendo calcaneus tendons. Motor exam is 5 on a scale of 5 with right dorsiflexion, extension, quadriceps and hamstring flexion and 5/5 on the left. Peripheral pulses are 1+ posterior tibial. No peripheral edema is noted bilaterally. Lower extremities are warm and dry to touch, equal in color and appearance. Patient's feet show moderate tenderness with palpation over the arch and fascia with some nodules which are palpable in the skin as well as in the tendons of the plantar fascia bilaterally which are fairly tender with palpation also with weightbearing significant tenderness noted as well with ambulation. SKIN: Shows warm and dry, good turgor. No edema. No sores, rashes or bruising throughout. Procedure: Procedure: Options were discussed with patient. Patient's old chart was reviewed as her current medication regimen updated, and current review of systems updated today as well. We will proceed with a right ilioinguinal nerve block today risks discussed including but not limited to bleeding infection possibility of intravascular injection sequelae spread local anesthetic numbness side effects of steroid medication and poor results regarding pain control. Patient understands wished to proceed. Patient return to the clinic in approximately 4 weeks for follow-up or as necessary. Will order x-ray of the bilateral feet series to compare right to left as well. Also discussed referral for podiatry evaluation. Medication Injected: Med Injected: Patient in supine position under sterile prep and drape right ilioinguinal region was identified and sterilely prepped and draped area approximate 2 cm medial and 2 cm inferior to the anterior superior iliac spine was then identified and using local anesthetic was locally anesthetized using a 25-gauge needle. This time, 25-gauge needle was advanced through the fascial layers with good popping sensation after negative aspiration a total of 5 cc 0.25% bupivacaine and 20 mg dexamethasone was injected in a fan like fashion through the fascial layers. Needle was withdrawn and sterile bandage was applied. Patient tolerated the procedure well and had no complications. Condition at Discharge: Condition at Discharge: Condition at discharge stable, paced tolerated procedure well and had no complications. SOFYA RUST MD Aug 02, 2021 15:57
--- NOTE | 2021-08-02 15:58 | PDOC4 ---
Procedure Note: ICD 10 Code: ICD 10 Code: R10.31 Procedure Note: Patient was consented for right ilioinguinal nerve block. Risk were discussed including but not limited to bleeding infection possibility of intravascular injection sequelae spread of local anesthetic and numbness side effects of steroid medication portals regarding pain control. Patient understands wishes to proceed. Patient in supine position under sterile prep and drape right ilioinguinal region was identified and sterilely prepped and draped area approximate 2 cm medial and 2 cm inferior to the anterior superior iliac spine was then identified and using local anesthetic was locally anesthetized using a 25-gauge needle. This time, 25-gauge needle was advanced through the fascial layers with good popping sensation after negative aspiration a total of 5 cc 0.25% bupivacaine and 20 mg dexamethasone was injected in a fan like fashion through the fascial layers. Needle was withdrawn and sterile bandage was applied. Patient tolerated the procedure well and had no complications. SOFYA RUST MD Aug 02, 2021 15:58
== END | disposition home or self-care (01) ==
LOC: PNCL 14:38
PROVIDERS: ATTEND Anesthesiology
DX: R10.31 Right lower quadrant pain (principal); Z79.899 Other long term (current) drug therapy; Z87.891 Personal history of nicotine dependence; Z72.89 Other problems related to lifestyle
CPT/HCPCS: 64425; J1100; J3490

== ENCOUNTER → 2021-08-09 | Outpatient (CLI) | payer OTHER ==
[2013-11-02 22:19] VITALS: BP 160/84
[~2021-08-09] MED LIST changes: -BUPIVACAINE MPF 0.25% 10 ML VIAL. ONE; -DEXAMETHASONE PRES.FREE 10 MG/ML VIAL. ONE
--- NOTE | 2021-08-09 17:34 | RAD ---
Bilateral feet 3 views each: Reason for examination: Bilateral foot pain. Comparison is made to previous study dated 02/11/2020. No acute fracture or dislocation is seen in either foot. The bone density is normal. No abnormal daniel osteal reaction is seen. There continues to be some degenerative changes present which are stable. Th ere also continues to be some calcaneal spurring bilaterally at the plantar surface. IMPRESSION: Mild degenerative changes which are stable. No acute bony abnormality seen in the right or left foot. Electronically signed by: Rachel Guillermo MD (08/09/2021 5:32 PM) [email or web address]
== END | disposition home or self-care (01) ==
LOC: RAD 06:51
PROVIDERS: ATTEND Anesthesiology
DX: M79.672 Pain in left foot (principal); M79.671 Pain in right foot; M19.072 Primary osteoarthritis, left ankle and foot; M19.071 Primary osteoarthritis, right ankle and foot; Z87.891 Personal history of nicotine dependence; Z72.89 Other problems related to lifestyle; Z79.899 Other long term (current) drug therapy
CPT/HCPCS: 73630-50